=== PATIENT | male | born 1960 | race Caucasian/White ===

== ENCOUNTER → 2019-06-29 | Outpatient (CLI) | payer OTHER ==
[~2019-06-29] VITALS: Ht 180.3 cm; Wt 113.0 kg
[~2019-06-29] MED LIST: ACTOS 30 MG TAB30 M1 PO; BYSTOLIC10 MG PO; COZAAR 25 MG TA25 M1 PO; INVOKANA300 MG PO; METFORMIN HCL500 M3 PO; SIMVASTATIN40 MG PO
[2019-06-29 07:17] VITALS: BP 143/74
[2019-06-29 07:21] LABS: HEMATOCRIT 46.4 % (42.0-52.0); HEMOGLOBIN 15.5 gm/dL (14.0-18.0); MCH 30.8 pg (26.0-34.0); MCHC 33.4 g/dL (28.0-37.0); MCV 92.2 fL (80.0-100.0); RBC 5.04 mil/uL (4.50-6.00); RDW 13.7 % (10.5-14.5); WBC 8.5 thou/uL (4.0-11.0)
[2019-06-29 07:32] LABS: CALCIUM 9.9 mg/dL (8.5-10.1); POTASSIUM 3.7 mmol/L (3.5-5.1)
--- NOTE | 2019-06-29 08:58 | EKG ---
[place] [address] [facility] [place] [address] ELECTROCARDIOGRAM REPORT Name: BEATA SANDOVAL Room #: [id number] Admission: 06/29/19 Attend Phys: Andrés Tom MD, Discharge: Date of : 62 Report #: [id number] THIS REPORT FOR: //name// [facility] Test Date: 2019-06-29 Test Time: 07:34:02 Pat Name: BEATA SANDOVAL Department: Room: Gender: Adult Education Instructor: Yary NUÑEZ : 1960 Requested By: Andrés Tom Order Number: [id number] MD: Dario Gonzalez Measurements Intervals [place] Rate: 72 P: 48 OR: 163 QRS: 14 QRSD: 91 T: 38 QT: 383 QTc: 420 Interpretive Statements Sinus rhythm Normal tracing No previous ECG available for comparison Electronically Signed On 06-29-2019 8:58:30 NEWS VIDEO EDITOR by Dario Gonzalez [email or web address] <ELECTRONICALLY SIGNED> By: Dario Gonzalez MD, [facility] 06/29/19 0858 [id number] 0734 Dario Gonzalez MD, FACC /EPI
--- NOTE | 2019-06-29 09:22 | NUR ---
DR DOUGLAS DISCUSSING CASE WITH PT AND FAMILY PRESENT
--- NOTE | 2019-07-02 13:38 | CATHLAB ---
[facility] [place] [address] INVASIVE PROCEDURE REPORT Name: SANDOVALBEATA Room #: REG Arpan#: [id number] Admission: 06/29/19 Attend Phys: Andrés Tom, Discharge: Date of : 62 Report #: [id number] THIS REPORT FOR: //name// APPROVED REPORT Study performed: 06/29/2019 07:52:00 Patient Details Patient Status: Out-Patient Room #: The patient is a 59 year-old male Event Personnel Andrés Tom Financial Aid Director, Sandra Saba RN RN, Kristyn Key RN RN, Deven Soni Monitor, Cecil Delgado RTR Monitor, Ashley Negron RTR Scrub, Yuliana Andrews RTR Scrub Procedures Performed Art Access - R femoral artery* Left Heart Cath w/or w/o Coronaries [id number] [facility] Aortogram Abdominal Peripheral Angio [id number] Indication Chest pain Procedure Narrative The Right Groin^ was infiltrated with 1% Lidocaine subcutaneous anesthesia. A PINNACLE 6FR Sheath #[id number] sheath was inserted into the RFA^. Coronary angiography was performed using coronary diagnostic catheters. The right coronary system was accessed and visualized with a JR 4 catheter. The left coronary system was accessed and visualized with a 6FR JL5 #[id number] catheter. The left ventricle was accessed and visualized with a PIGTAIL catheter. Left ventricular/Aortic Valve gradient assessed via catheter pullback. Left ventriculogram was performed in 30 degree projection. An aortogram of the abdominal aorta was performed. Closure device was deployed with a 6 Fr MYNXGRIP 6/7F #[id number]. The patient tolerated the procedure well and there were no complications associated with the procedure. There was no hematoma. Intraoperative Conscious Sedation Sedation start time: 8.28 Case end Time: 9.09 Fentanyl 50 mcg Versed 1 mg [facility] [place] [address] INVASIVE PROCEDURE REPORT Name: BEATA SANDOVAL Room #: REG [facility] [id number] Admission: 06/29/19 Attend Phys: Andrés Tom, Discharge: Date of : 62 Report #: [id number] Fluoro Time: 2.47 minutes Dose: DAP 6380.10 cGycm2 801 mGy Contrast Type and Amount: Omnipaque 155 ml Hemodynamics The aortic pressure is 160/80 mmHg with a mean of 80 mmHg. The left ventricular pressure is 172/17 mmHg with a mean of mmHg. The left ventricular end diastolic pressure is 32 mmHg. Conclusion #1 normal left ventricular size and systolic function EF 60% #2 abdominal aortogram reveals mild aortic plaquing no aneurysm is noted no stenosis. Mild disease in bilateral renal arteries. #3 left main mildly calcified widely patent giving rise to LAD and circumflex #4 the LAD is proximal calcification with mild irregularity there is diffuse distal disease high-grade at the apex no indication for intervention in this vessel. The distal segment would not be amenable to intervention. #5 ramus intermedius branch 6070% proximal lesion relatively small in distribution #6 ostial circumflex also 70% ostial off of the left main and a mid circumflex of 60% long lesion. #7 dominant right coronary artery with mild diffuse disease there is a mid vessel lesion of 50-60% and a diffusely disease PDA EFREN system Recommendations plan: Continue aggressive risk factor modification medical therapy indicated here. No anginal type symptoms. Stress testing revealing anterior apical ischemia not amenable to intervention. Moderate DeLee significant three-vessel disease as described above. Will continue close observation periodic stress testing. Aggressive lipid management blood pressure control beta ishmael for cardioprotection. Aggressive diabetic control. <ELECTRONICALLY SIGNED> By: Andrés Tom MD, FACC 07/02/19 1338 1338 1338 Andrés Tom MD, FACC /INF
== END | disposition home or self-care (01) ==
LOC: CATH 06:49
PROVIDERS: Internal Medicine Cardiovascular Disease
DX: R07.9 Chest pain, unspecified (principal); I25.10 Atherosclerotic heart disease of native coronary artery without angina pectoris; I70.0 Atherosclerosis of aorta; I70.1 Atherosclerosis of renal artery; E11.9 Type 2 diabetes mellitus without complications; E78.5 Hyperlipidemia, unspecified; Z98.890 Other specified postprocedural states; Z79.899 Other long term (current) drug therapy

== ENCOUNTER → 2021-01-12 | Outpatient (CLI) | payer OTHER | LOC: SJCVCIMAG 07:38 | PROVIDERS: ATTEND Internal Medicine Cardiovascular Disease | DX: I08.0 Rheumatic disorders of both mitral and aortic valves (principal); I25.10 Atherosclerotic heart disease of native coronary artery without angina pectoris ==